=== PATIENT | female | born 1950 | race Caucasian/White ===

== ENCOUNTER → 2023-09-04 07:20 | Outpatient (REF) | payer MEDICARE, OTHER, SELFPAY | LOC: EMG 07:20 | PROVIDERS: ATTENDING PHYSICIAN Internal Medicine; OTHER PHYSICIAN Orthopaedic Surgery Hand Surgery | DX: R20.2 Paresthesia of skin (principal); R20.0 Anesthesia of skin; G56.02 Carpal tunnel syndrome, left upper limb | CPT/HCPCS: 95886; 95909 ==

== ENCOUNTER → 2023-09-19 10:10 | Outpatient (REF) | payer MEDICARE, OTHER, SELFPAY | LOC: WDC 10:10 | PROVIDERS: ATTENDING PHYSICIAN Internal Medicine | DX: Z13.820 Encounter for screening for osteoporosis (principal); Z12.31 Encounter for screening mammogram for malignant neoplasm of breast; Z78.0 Asymptomatic menopausal state | CPT/HCPCS: 77063; 77067; 77080 ==